=== PATIENT | female | born 1985 | race Caucasian/White ===

== ENCOUNTER 2019-11-14 06:23 | Emergency (ER) | payer MEDICAID, OTHER ==
[~2019-11-14] VITALS: Ht 157.5 cm; Wt 66.7 kg
[2019-11-14] MEDS ORDERED: KETOROLAC TROMETHAMINE 15 MG INJ IVP ONE (07:00)
[2019-11-14] MEDS ORDERED: diphenhydrAMINE 50 MG/1 ML VIAL IV ONE (07:00)
[2019-11-14] MEDS ORDERED: IV NORMAL SALINE 1000 ML BAG IV ONE (07:00)
[2019-11-14] MEDS ORDERED: DEXAMETHASONE SOD PHOSPHATE 4 MG INJ IV ONE (07:00)
[2019-11-14] MEDS ORDERED: ACETAMINOPHEN ES 500 MG TABLET PO ONE (07:00)
[2019-11-14] MEDS ORDERED: METOCLOPRAMIDE HCL 10 MG/2 ML VIAL IV ONE (07:00)
[2019-11-14] MEDS ORDERED: diphenhydrAMINE 50 MG/1 ML VIAL ONE (07:02)
[2019-11-14] MEDS ORDERED: ACETAMINOPHEN ES 500 MG TABLET ONE (07:02)
[2019-11-14] MEDS ORDERED: DEXAMETHASONE SOD PHOSPHATE 10 MG INJ ONE (07:02)
[2019-11-14] MEDS ORDERED: METOCLOPRAMIDE HCL 10 MG/2 ML VIAL ONE (07:02)
[2019-11-14 07:03] LABS: *URINE HCG, QUAL NEG (NEGATIVE)
[2019-11-14 07:07] LABS: BASOPHILS % (AUTO) 0.5 % (0.0-2.0); EOSINOPHILS # (AUTO) 0.1 K/uL (0.0-0.7); EOSINOPHILS % (AUTO) 1.5 % (0.0-7.0); HEMATOCRIT 45.4 % (31.2-41.9); HEMOGLOBIN 15.5 g/dL (10.9-14.3); LYMPHOCYTES # (AUTO) 1.6 K/uL (20.0-40.0); LYMPHOCYTES % (AUTO) 19.9 % (20.5-51.5); MEAN CORPUSCULAR HEMOGLOBIN 30.4 uug (24.7-32.8); MEAN CORPUSCULAR HGB CONC 34 g/dL (32.3-35.6); MEAN CORPUSCULAR VOLUME 89.2 fL (75.5-95.3); MONOCYTES # (AUTO) 0.7 K/uL (2.0-10.0); MONOCYTES % (AUTO) 8.9 % (0.0-11.0); NEUTROPHILS # (AUTO) 5.7 K/uL (1.8-8.9); NEUTROPHILS % (AUTO) 69.2 % (38.5-71.5); PLATELET COUNT (AUTO) 246 K/uL (179-408); RED BLOOD CELL COUNT(AUTO) 5.09 MIL/uL (3.63-4.92); WHITE BLOOD COUNT (AUTO) 8.3 K/uL (3.8-11.8)
[2019-11-14 07:20] LABS: CREATININE 0.9 mg/dL (0.6-1.3)
[2019-11-14] MEDS ORDERED: KETOROLAC TROMETHAMINE 15 MG INJ ONE (07:20)
--- NOTE | 2019-11-14 08:00 | NUR ---
IV removed. Catheter intact and site benign. Pressure and 4x4 gauze applied to site. No bleeding noted. Patient discharged to home in stable condition. Written and verbal after care instructions given. Patient verbalizes understanding of instructions. Stressed follow up or return to ER for worsening s/s. Patient ambulated with steady gait. NAD noted
[2019-11-14 08:05] VITALS: BP 158/89
== END 2019-11-14 08:00 | disposition home or self-care (01) ==
LOC: ER 06:30
DX: R51 Headache (principal); R03.0 Elevated blood-pressure reading, without diagnosis of hypertension; Z86.69 Personal history of other diseases of the nervous system and sense organs; Z88.2 Allergy status to sulfonamides
CPT/HCPCS: 36415; 80048; 84703; 85025; 96374; 96375; 99284; J1100; J1200; J1885; J2765; A4663; A9150; J7030

== ENCOUNTER 2019-12-30 03:23 | Emergency (ER) | payer MEDICAID ==
[~2019-12-30] VITALS: Ht 157.5 cm; Wt 61.2 kg
--- NOTE | 2019-12-30 03:38 | NUR ---
at bedside for assessment
[2019-12-30] MEDS ORDERED: TETRACAINE HCL 0.5% OPHT DROP 2 ML BOTTLE ONE (03:41)
[2019-12-30] MEDS ORDERED: FLUORESCEIN SODIUM 1 MG STRIP ONE (03:41)
[2019-12-30] MEDS ORDERED: FLUORESCEIN SODIUM 1 MG STRIP OP ONE (03:45)
[2019-12-30] MEDS ORDERED: TETRACAINE HCL 0.5% OPHT DROP 2 ML BOTTLE OP ONE (03:45)
--- NOTE | 2019-12-30 03:52 | NUR ---
Patient discharged to home in stable condition. Rx given. patient took all belongings, no signs of acute distress. Written and verbal after care instructions given. Patient verbalizes understanding of instructions. Stressed follow up or return to ER for worsening s/s.
[2019-12-30 03:58] VITALS: BP 151/99
== END 2019-12-30 04:00 | disposition home or self-care (01) ==
LOC: ER 03:23
DX: S05.01XA Injury of conjunctiva and corneal abrasion without foreign body, right eye, initial encounter (principal); X58.XXXA Exposure to other specified factors, initial encounter; Y92.69 Other specified industrial and construction area as the place of occurrence of the external cause; Z90.49 Acquired absence of other specified parts of digestive tract; Z88.2 Allergy status to sulfonamides
CPT/HCPCS: A4663

== ENCOUNTER 2019-12-30 13:01 | Emergency (ER) | payer MEDICAID ==
[~2019-12-30] VITALS: Ht 157.5 cm; Wt 61.2 kg
[2019-12-30] MEDS ORDERED: TETRACAINE HCL 0.5% OPHT DROP 2 ML BOTTLE OP ONE (13:15)
[2019-12-30] MEDS ORDERED: FLUORESCEIN SODIUM 1 MG STRIP ONE (13:17)
[2019-12-30] MEDS ORDERED: TETRACAINE HCL 0.5% OPHT DROP 2 ML BOTTLE ONE (13:17)
--- NOTE | 2019-12-30 14:45 | NUR ---
Patient discharged to home in stable condition. Written and verbal after care instructions given. Patient verbalizes understanding of instructions. Stressed follow up or return to ER for worsening s/s.
== END 2019-12-30 14:45 | disposition home or self-care (01) ==
LOC: ER 13:01
DX: H16.001 Unspecified corneal ulcer, right eye (principal); R03.0 Elevated blood-pressure reading, without diagnosis of hypertension; Z90.49 Acquired absence of other specified parts of digestive tract
CPT/HCPCS: A4663

== ENCOUNTER 2020-08-10 23:40 | Emergency (ER) | payer SELFPAY ==
--- NOTE | 2020-08-11 00:06 | NUR ---
Patient left without being triaged. Patient stated, "I am just going to home".
== END 2020-08-11 00:07 | disposition left against medical advice (07) ==
LOC: ER 23:44
DX: Z53.21 Procedure and treatment not carried out due to patient leaving prior to being seen by health care provider (principal)

== ENCOUNTER 2020-10-11 01:32 | Emergency (ER) | payer SELFPAY ==
--- NOTE | 2020-10-11 02:45 | NUR ---
Patient was called to be traiged states "I don't want to be seen anymore." Patient left without being traiged or being seen by ERMD.
== END 2020-10-11 02:30 | disposition left against medical advice (07) ==
LOC: ER 01:38
DX: Z53.21 Procedure and treatment not carried out due to patient leaving prior to being seen by health care provider (principal)

== ENCOUNTER 2021-12-09 04:58 | Emergency (ER) | payer MEDICAID ==
[~2021-12-09] VITALS: Ht 157.5 cm; Wt 63.5 kg
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
--- NOTE | 2021-12-09 05:52 | NUR ---
Dr. Barker on bedside for MSE.
--- NOTE | 2021-12-09 06:20 | NUR ---
Back from radiology.
--- NOTE | 2021-12-09 06:57 | NUR ---
Dr. Barker on bedside.
[2021-12-09] MEDS ORDERED: IBUP-1955 PO (07:04)
[2021-12-09] MEDS ORDERED: CYCL10TA9 PO (07:04)
[2021-12-09 07:07] VITALS: BP 150/90
--- NOTE | 2021-12-09 07:07 | NUR ---
Patient discharged to home in stable condition. Written and verbal after care instructions given. Patient verbalizes understanding of instructions. Stressed follow up or return to ER for worsening s/s. Patient ambulated fr the ER with steady gait. All belongings with patient.
== END 2021-12-09 07:08 | disposition home or self-care (01) ==
LOC: ER 05:01
DX: S13.9XXA Sprain of joints and ligaments of unspecified parts of neck, initial encounter (principal); V43.52XA Car driver injured in collision with other type car in traffic accident, initial encounter; Y92.414 Local residential or business street as the place of occurrence of the external cause; M48.02 Spinal stenosis, cervical region; M54.9 Dorsalgia, unspecified; Z88.2 Allergy status to sulfonamides; Z90.49 Acquired absence of other specified parts of digestive tract; R03.0 Elevated blood-pressure reading, without diagnosis of hypertension
CPT/HCPCS: A4663

== ENCOUNTER 2022-03-22 12:22 | Emergency (ER) | payer MEDICAID ==
[~2022-03-22] VITALS: Ht 157.5 cm; Wt 68.0 kg
[~2022-03-22 12:22] MED LIST: CYCL10TA9 PO; IBUP-1955 PO
[2022-03-22 13:33] LABS: HEMATOCRIT 43.4 % (31.2-41.9); MEAN CORPUSCULAR HEMOGLOBIN 29.8 uug (24.7-32.8); MEAN CORPUSCULAR VOLUME 89.8 fL (75.5-95.3); PLATELET COUNT (AUTO) 270 K/uL (179-408)
[2022-03-22 13:57] LABS: BILIRUBIN,DIRECT 0.1 mg/dL (0.0-0.2); BILIRUBIN,TOTAL 0.4 mg/dL (0.2-1.0); CREATININE 0.8 mg/dL (0.6-1.3); POTASSIUM 4.6 mmol/L (3.5-5.1)
== END 2022-03-22 15:07 | disposition home or self-care (01) ==
LOC: ER 12:22
DX: O09.521 Supervision of elderly multigravida, first trimester (principal); Z3A.01 Less than 8 weeks gestation of pregnancy; Z88.2 Allergy status to sulfonamides; Z90.49 Acquired absence of other specified parts of digestive tract
CPT/HCPCS: 36415; 76856; 85025; 86850; 86900; 86901; A4663